=== PATIENT | male | born 1945 | race Caucasian/White ===

== ENCOUNTER 2017-05-28 11:18 | Day surgery (SDC) | payer OTHER ==
[2017-05-28] MEDS ORDERED: FAMOTIDINE 20 MG TAB PO ONE (11:26)
[2017-05-28] MEDS ORDERED: NS 1,000 ML IV ONE (11:26)
[2017-05-28] MEDS ORDERED: diphenhydrAMINE 25 MG CAP PO ONE (11:26)
[2017-05-28] MEDS ORDERED: DIAZEPAM 5 MG TAB PO ONE (11:26)
[2017-05-28] MEDS ORDERED: ASPIRIN EC 325 MG TAB PO ONE (11:26)
--- NOTE | 2017-05-28 11:43 | CPEKG ---
Heart Rate: 63 RR Interval: 952 P-R Interval: 204 QRSD Interval: 136 QT Interval: 412 QTC Interval: 422 P [place]: 40 QRS [place]: -35 T Wave [place]: 9 EKG Severity - ABNORMAL ECG - EKG Impression: SINUS RHYTHM EKG Impression: RIGHT BUNDLE BRANCH BLOCK EKG Impression: RBBB IS NEW IN COMPARISON TO PRIOR Electronically Signed By: Hans Pichardo 28-May-2017 13:51:58
[2017-05-28 11:58] LABS: PLATELET COUNT 178 10^3/uL (150-400)
[2017-05-28 12:08] LABS: INR 0.99 (0.83-1.16); PROTIME(PATIENT) 13.3 SEC (12.0-15.0)
--- NOTE | 2017-05-28 12:09 | PDHPUP ---
History & Physical Update H&P update statement: This history and physical update is based on an assessment of the patient which was completed after admission or registration (within 24 hours), but prior to the surgery/procedure. H&P update: H&P reviewed & patient examined, no change in patient's condition since H&P completed
--- NOTE | 2017-05-28 12:09 | PDPROPOC ---
Sedation Plan of Care Sedation Plan of Care: vital signs stable, mental status noted, patient educated of risks, benefits, alternatives, patient can tolerate sedation ASA Classification: ASA 2 Planned drugs: fentanyl, midazolam Mallampati Score: Class 1 Mallampati Reference Image: Patient passed 3-3-2 rule?: Yes
[2017-05-28] MEDS ORDERED: LIDOCAINE 1% 300 MG/30 ML SDV ONE (12:23)
[2017-05-28] MEDS ORDERED: MIDAZOLAM 2 MG/2 ML VIAL ONE (12:24)
[2017-05-28] MEDS ORDERED: IOPAMIDOL (ISOVUE-370) 150 ML BTL IV ONE (12:24)
[2017-05-28] MEDS ORDERED: fentaNYL 100 MCG/2 ML INJ ONE (12:24)
[2017-05-28] MEDS ORDERED: HEPARIN 10,000 UNIT/10 ML MDV (1,000 UNIT/ML) ONE (12:29)
[2017-05-28] MEDS ORDERED: VERAPAMIL 5 MG/2 ML VIAL ONE ×2 (12:29→13:02)
[2017-05-28] MEDS ORDERED: CLOPIDOGREL BISULFATE 75 MG TAB ONE (12:34)
--- NOTE | 2017-05-28 13:34 | PDDXCAT ---
Diagnostic Cath Note - . 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 Estimated blood loss: <50ml Closure method: TR Band Assessment: Widely patent site of prior stenting. Mild nonobstructive atherosclerotic cardiovascular disease. Normal LV systolic function. Patient Problems: Problems Problem Status Onset Coronary artery disease Acute Angina pectoris, crescendo Acute
== END 2017-05-28 17:21 | disposition home or self-care (01) ==
LOC: FCATH 11:18
PROVIDERS: ATTEND Internal Medicine Interventional Cardiology
PROC: 4A023N7 Measurement of Cardiac Sampling and Pressure, Left Heart, Percutaneous Approach (ICD-10-PCS; principal; 2017-05-28)
PROC: B2151ZZ Fluoroscopy of Left Heart using Low Osmolar Contrast (ICD-10-PCS; principal; 2017-05-28)
PROC: B2111ZZ Fluoroscopy of Multiple Coronary Arteries using Low Osmolar Contrast (ICD-10-PCS; principal; 2017-05-28)
DX: I25.110 Atherosclerotic heart disease of native coronary artery with unstable angina pectoris (principal); E78.5 Hyperlipidemia, unspecified; I10 Essential (primary) hypertension; Z95.5 Presence of coronary angioplasty implant and graft
CPT/HCPCS: 93005; 93458; C1769; J1644; J2250; J3010; Q9967

== ENCOUNTER 2018-02-09 10:49 | Observation (INO) | payer OTHER ==
--- NOTE | 2018-02-09 11:30 | EDPHY ---
H & P Stated Complaint: non traumatic L leg lower back pain on and for months worse last night- Time Seen by Provider: 02/09/18 10:57 HPI/ROS: CHIEF COMPLAINT: Multiple complaints, see HPI HISTORY OF PRESENT ILLNESS: 72-year-old male with medical history significant for cardiac stenting, on daily Plavix, arrives via private vehicle with his with multiple complaints. 1st and primary complaint is a varicose vein which ruptured approximately midnight last night on his right medial ankle. This has now stopped bleeding and there is a Band-Aid in place. 2nd complaint is chest pain which occurred approximately midnight as well lasted approximately 30 min described as a dull ache. He did not take any nitroglycerin at this time. He went back to bed. Currently asymptomatic for chest pain. Was not accompanied by diaphoresis, syncope or near syncope, dyspnea. 3rd complaint is several months of left lumbar pain with radicular pains left lower extremity. No weakness. No incontinence no retention. No saddle anesthesia. No foot drop. No trauma or fall. Has not sought medical evaluation for this. REVIEW OF SYSTEMS: 10 systems reviewed and negative with the exception of the elements mentioned in the history of present illness PAST MEDICAL & SURGICAL HISTORY: cardiac stenting. SOCIAL HISTORY: nonsmoker PHYSICAL EXAM (Prior to examination, patient consented to physical exam, hands were washed and my usual and customary physical exam procedures followed) 1) GENERAL: Well-developed, well-nourished, alert and oriented. Appears to be in no acute distress. 2) HEAD: Normocephalic, atraumatic 3) HEENT: Pupils equal, round, reactive to light bilaterally. Sclera anicteric. Nasopharynx, oropharynx, clear, no lesions. MoistDry mucous membranes. Ears bilaterally with normal tympanic membranes. 4) NECK: Full range of motion, no meningeal signs. 5) LUNGS: Clear auscultation bilaterally, no wheezes, no rhonchi, no retractions. 6) HEART: Regular rate and rhythm, no murmur, no heave, no gallop. 7) ABDOMEN: No guarding, no rebound, no focal tenderness, negative McBurney's, negative Pineda's, negative Rovsing's, negative peritoneal sign, 8) MUSCULOSKELETAL: Right lower extremity: Band-Aid in place right medial ankle. No active bleeding. The for bleeding site is visualized and appears well with no signs of infection. DP PT pulses present and brisk. Moving all extremities, no focal areas of tenderness, no obvious trauma. No peripheral edema or discoloration. 9) BACK: No CVA tenderness, no midline vertebral tenderness, no fluctuance, no step-off, no obvious trauma, no visual or palpable abnormality. Positive straight leg lift test on the left. Patella and Achilles reflexes are intact equal bilaterally strength 5/5. No footdrop. 10) SKIN: No rash, no petechiae. 11) Psychiatric: Patient is oriented X 3, there is no agitation. DIFFERENTIAL DIAGNOSIS: In no particular order, including but not limited to myocardial ischemia, pulmonary embolus, chest wall pain, pleural inflammation and pulmonary infectious causes. - Personal History Tetanus Vaccine Date: 2005 - Medical/Surgical History Hx Asthma: No Hx Chronic Respiratory Disease: No Hx Diabetes: No Hx Cardiac Disease: Yes Hx Renal Disease: No Hx Cirrhosis: No Hx Alcoholism: No Hx HIV/AIDS: No Hx Splenectomy or Spleen Trauma: No Other PMH: htn, hyperlipidemia, cardiac stents, dementia - Social History Smoking Status: Never smoked Constitutional: Initial Vital Signs Temperature (C) 36.7 C 02/09/18 10:53 Heart Rate 60 02/09/18 10:53 Respiratory Rate 16 02/09/18 10:53 Blood Pressure 158/84 H 02/09/18 10:53 O2 Sat (%) 95 02/09/18 10:53 O2 Delivery Mode Room Air Allergies/Adverse Reactions: No Known Allergies Allergy (Unverified 02/02/10 16:58) Home Medications: Medication Instructions Recorded Atorvastatin Calcium 80 mg PO DAILY 02/09/18 Clopidogrel Bisulfate [Plavix (*)] 75 mg PO DAILY 02/09/18 Losartan Potassium [Cozaar 25 mg 25 mg PO DAILY 02/09/18 (*)] Metoprolol Succinate Xr [Toprol Xl 25 mg PO DAILY 02/09/18 25 mg (*)] Multivitamins [Multivitamin (*)] 1 each PO DAILY 02/09/18 Medical Decision Making - Diagnostics Imaging Results: Imaging Impressions Chest X-Ray 02/09/18 11:13 Impression: No acute abnormality. ED Course/Re-evaluation: 11:15 a.m.: I saw this patient independently based on established practice protocols. Care of patient under supervision of secondary supervising physician Dr Armin Sung with whom I discussed case. I reviewed the patient's old medical records. He presents to the ER with multiple complaints. His primary complaint and concern was the area of bleeding from a varicose vein. This is now hemostatic and has been dressed to protect the area further bumping. His other complaint is a several months of left lower extremity pain with no neurologic deficits, no footdrop no weakness. His other complaint is acute chest pain which I think is more concerning and mandates evaluation from the emergency department given his cardiac history. Currently asymptomatic. Will obtain laboratory studies for evaluation of chest pain. Regarding his back pain and left lower extremity radiculopathy, he is neurologically intact. I do not think that emergent MRI from the emergency department is indicated however this may be indicated on an outpatient basis or inpatient basis the patient is admitted. 12:10 p.m.: Patient's has a high HEART score based on age, risk factors and history. He has negative troponin currently. Recommended admission to the hospital for evaluation of his chest pain. Consultation with hospitalist admit to Dr. Tejada. Regarding his low back pain, I do not think that emergent MRI indicated however this may be obtained at the discretion of the hospitalist service. He has no neurologic deficits or weakness at this time. - Data Points Laboratory Results: Laboratory Results 02/09/18 11:18 02/09/18 11:18 02/09/18 02/09/18 02/09/18 11:21 11:18 11:18 WBC 5.91 10^3/uL 10^3/uL (3.80-9.50) RBC 4.82 10^6/uL 10^6/uL (4.40-6.38) Hgb 15.2 g/dL g/dL (13.7-17.5) Hct 46.5 % % (40.0-51.0) MCV 96.5 fL fL (81.5-99.8) MCH 31.5 pg pg (27.9-34.1) MCHC 32.7 g/dL g/dL (32.4-36.7) RDW 12.7 % % (11.5-15.2) Plt Count 173 10^3/uL 10^3/uL (150-400) MPV 8.7 fL fL (8.7-11.7) Neut % (Auto) 69.6 % % (39.3-74.2) Lymph % (Auto) 18.8 % % (15.0-45.0) [place] % (Auto) 9.5 % % (4.5-13.0) Eos % (Auto) 1.5 % % (0.6-7.6) Baso % (Auto) 0.3 % % (0.3-1.7) Nucleat RBC Rel Count 0.0 % % (0.0-0.2) Absolute Neuts (auto) 4.11 10^3/uL 10^3/uL (1.70-6.50) Absolute Lymphs (auto) 1.11 10^3/uL 10^3/uL (1.00-3.00) Absolute Monos (auto) 0.56 10^3/uL 10^3/uL (0.30-0.80) Absolute Eos (auto) 0.09 10^3/uL 10^3/uL (0.03-0.40) Absolute Basos (auto) 0.02 10^3/uL 10^3/uL (0.02-0.10) Absolute Nucleated RBC 0.00 10^3/uL 10^3/uL (0-0.01) Immature Gran % 0.3 % % (0.0-1.1) Immature Gran # 0.02 10^3/uL 10^3/uL (0.00-0.10) Sodium 139 mEq/L mEq/L (135-145) Potassium 4.4 mEq/L mEq/L (3.3-5.0) Chloride 105 mEq/L mEq/L (97-110) Carbon Dioxide 27 mEq/l mEq/l (22-31) Anion Gap 7 mEq/L mEq/L (6-14) BUN 22 mg/dL mg/dL (7-23) Creatinine 0.8 mg/dL mg/dL (0.7-1.3) Estimated GFR > 60 Glucose 93 mg/dL mg/dL (70-100) Calcium 9.1 mg/dL mg/dL (8.5-10.4) POC Troponin I 0.00 ng/mL ng/mL (0.00-0.08) Medications Given: Discontinued Medications Fentanyl (Sublimaze) 50 mcg IVP EDNOW ONE Stop: 02/09/18 12:56 Last Admin: 02/09/18 13:01 Dose: 50 mcg Point of Care Test Results: Chemistry 02/09/18 11:21 POC Troponin I 0.00 ng/mL ng/mL (0.00-0.08) Departure - Departure Disposition: [facility] Inpatient Acute Clinical Impression: Radicular pain of left lower extremity, Bleeding from varicose vein Chest pain Qualifiers: Chest pain type: unspecified Qualified Code(s): R07.9 - Chest pain, unspecified Condition: Fair
[2018-02-09 11:38] LABS: PLATELET COUNT 173 10^3/uL (150-400)
[2018-02-09] MEDS ORDERED: fentaNYL 100 MCG/2 ML INJ IVP ONE (12:55)
--- NOTE | 2018-02-09 13:59 | CPEKG ---
Test Reason : OPEN Blood Pressure : / mmHG Vent. Rate : 060 BPM Atrial Rate : 060 BPM P-R Int : 211 ms QRS Dur : 144 ms QT Int : 402 ms P-R-T Axes : -21 -47 001 degrees QTc Int : 402 ms Sinus rhythm RBBB and LAFB Confirmed by Armin Sung ([id number]) on 02/09/2018 1:59:07 PM Referred By: Confirmed By:Armin Sung
[2018-02-09] MEDS ORDERED: ONDANSETRON 4 MG/2 ML VIAL IVP PRN (15:06)
[2018-02-09] MEDS ORDERED: NITROGLYCERIN 0.4 MG BTL SL PRN (15:06)
[2018-02-09] MEDS: ACETAMINOPHEN 325 MG TAB PO PRN (15:37)
--- NOTE | 2018-02-09 15:43 | PDGENHP ---
History and Physical - Chief Complaint chest pain - History of Present Illness 72yo M with history of CAD s/p RCA stenting, HTN, HLD, TBI presents after having episode of chest discomfort last night. He actually woke up around midnight as a varicose vein in his right leg had spontaneously opened and started bleeding. His provided pressure and this eventually stopped bleeding. During this episode, he noticed left sided chest pain. Did not radiate. Not exertional, positional, or pleuritic. No associated diaphoresis or nausea. He has some bilateral leg edema which is new for him but denies orthopnea. His checked his pulse at the time and thought that it was skipping beats. This chest pain resolved spontaneously after 30 minutes or so. The patient has noticed similar sensations while briskly walking over the last few months. This hasn't changed in intensity or frequency over this time period. He sees Dr Leyva and had a coronary angiogram for chest pain 2017. This showed widely patent RCA stents with mild non-obstructive disease and normal LV function. Of note, patient is somewhat of a poor historian. His provided a significant portion of the history. In the ED, had negative troponin and ECG without acute ischemia. Given his elevated HEART score, he is being admitted for further evaluation of his chest pain. Also of note, patient reports somewhat new left hip pain. Lateral side of hip. No back pain. No recent falls. Denies weakness/numbness in left leg. No bowel/ bladder incontinence. History Information - Allergies/Home Medication List Allergies/Adverse Reactions: No Known Allergies Allergy (Unverified 02/02/10 16:58) Home Medications: Atorvastatin Calcium 80 mg PO DAILY 02/09/18 [Last Taken 02/08/18] Clopidogrel Bisulfate [Plavix (*)] 75 mg PO DAILY 02/09/18 [Last Taken 02/08/18] Losartan Potassium [Cozaar 25 mg (*)] 25 mg PO DAILY 02/09/18 [Last Taken ] Metoprolol Succinate Xr [Toprol Xl 25 mg (*)] 25 mg PO DAILY 02/09/18 [Last Taken 02/08/18] Multivitamins [Multivitamin (*)] 1 each PO DAILY 02/09/18 [Last Taken Unknown] I have personally reviewed and updated: family history, medical history, social history, surgical history - Past Medical History Additional medical history: CAD s/p RCA stents x2, HTN, HLD, TBI (after fall about 9 years ago) - Surgical History Additional surgical history: coronary angiography x2, cervical spinal fusion - Family History Positive for: non-pertinent - Social History Smoking Status: Never smoked Alcohol Use: None Drug Use: None Additional social history: Lives with Review of Systems Review of Systems: ROS: 10pt was reviewed & negative except for what was stated in HPI & below Physical Exam Physical Exam: Temp Pulse Resp BP Pulse Ox 36.1 C 63 15 166/89 H 92 02/09/18 14:37 02/09/18 14:37 02/09/18 14:37 02/09/18 14:37 02/09/18 14:37 Constitutional: no apparent distress, appears nourished, not in pain Eyes: PERRL, anicteric sclera, EOMI Ears, Nose, Mouth, Throat: moist mucous membranes, hearing normal, ears appear normal, no oral mucosal ulcers Cardiovascular: regular rate and rhythym, no murmur, rub, or gallop, edema (1+ in BLE), No JVD Respiratory: no respiratory distress, no rales or rhonchi, clear to auscultation Gastrointestinal: normoactive bowel sounds, soft, non-tender abdomen, no palpable masses Genitourinary: no bladder fullness, no bladder tenderness Skin: warm, normal color, no rashes or abrasions, no fluctuance, no induration, No mottled Musculoskeletal: full muscle strength, no muscle tenderness, other (left hip tenderness over greater trochanter) Neurologic: AAOx3, sensation intact bilaterally, No weakness, No numbness Psychiatric: other (slow to respond at times but grossly oriented to situation) Lab Data & Imaging Review 02/09/18 11:18 02/09/18 11:18 WBC 5.91 10^3/uL (3.80-9.50) 02/09/18 11:18 RBC 4.82 10^6/uL (4.40-6.38) 02/09/18 11:18 Hgb 15.2 g/dL (13.7-17.5) 02/09/18 11:18 Hct 46.5 % (40.0-51.0) 02/09/18 11:18 MCV 96.5 fL (81.5-99.8) 02/09/18 11:18 MCH 31.5 pg (27.9-34.1) 02/09/18 11:18 MCHC 32.7 g/dL (32.4-36.7) 02/09/18 11:18 RDW 12.7 % (11.5-15.2) 02/09/18 11:18 Plt Count 173 10^3/uL (150-400) 02/09/18 11:18 MPV 8.7 fL (8.7-11.7) 02/09/18 11:18 Neut % (Auto) 69.6 % (39.3-74.2) 02/09/18 11:18 Lymph % (Auto) 18.8 % (15.0-45.0) 02/09/18 11:18 [place] % (Auto) 9.5 % (4.5-13.0) 02/09/18 11:18 Eos % (Auto) 1.5 % (0.6-7.6) 02/09/18 11:18 Baso % (Auto) 0.3 % (0.3-1.7) 02/09/18 11:18 Nucleat RBC Rel Count 0.0 % (0.0-0.2) 02/09/18 11:18 Absolute Neuts (auto) 4.11 10^3/uL (1.70-6.50) 02/09/18 11:18 Absolute Lymphs (auto) 1.11 10^3/uL (1.00-3.00) 02/09/18 11:18 Absolute Monos (auto) 0.56 10^3/uL (0.30-0.80) 02/09/18 11:18 Absolute Eos (auto) 0.09 10^3/uL (0.03-0.40) 02/09/18 11:18 Absolute Basos (auto) 0.02 10^3/uL (0.02-0.10) 02/09/18 11:18 Absolute Nucleated RBC 0.00 10^3/uL (0-0.01) 02/09/18 11:18 Immature Gran % 0.3 % (0.0-1.1) 02/09/18 11:18 Immature Gran # 0.02 10^3/uL (0.00-0.10) 02/09/18 11:18 Sodium 139 mEq/L (135-145) 02/09/18 11:18 Potassium 4.4 mEq/L (3.3-5.0) 02/09/18 11:18 Chloride 105 mEq/L (97-110) 02/09/18 11:18 Carbon Dioxide 27 mEq/l (22-31) 02/09/18 11:18 Anion Gap 7 mEq/L (6-14) 02/09/18 11:18 BUN 22 mg/dL (7-23) 02/09/18 11:18 Creatinine 0.8 mg/dL (0.7-1.3) 02/09/18 11:18 Estimated GFR > 60 02/09/18 11:18 Glucose 93 mg/dL (70-100) 02/09/18 11:18 Calcium 9.1 mg/dL (8.5-10.4) 02/09/18 11:18 POC Troponin I 0.00 ng/mL (0.00-0.08) 02/09/18 11:21 Visualized and Interpreted Chest x-ray results: Yes Visualized and Interpreted imaging results: Yes Interpretation: CXR: no infiltrate, effusion. normal heart size. no significant vascular congestion (per my read). LLE duplex US: negative for DVT Visualized and Interpreted EKG results: Yes EKG additional interpertation: ECG: sinus rhtyhm, 1st degree AV block, RBBB, biphasic T wave in V3 otherwise no ST-T wave changes suggestive of ischemia ( similar to 05/30/2017 ecg) Assessment & Plan Assessment: 72yo M with history of CAD s/p RCA stenting, HTN, HLD presents after having episode of chest discomfort last night being admitted for further evaluation. Plan: #Chest pain: Given history, requires further investigation. Initial trop negative and ecg without acute ischemic changes. Story not convincing for ACS at present and will hold on systemic anticoagulation. - Trend trop/ecg - Telemetry - If above negative, plan for nuclear stress with MPI in morning - Obtain TTE with new leg swelling (and none in system since 2009 that I can find) #CAD: Coronary angiography 05/30/2017 with patent RCA stents and otherwise mild non-obstructive disease. Sees Dr Leyva. - Continue plavix, statin, beta [place] - Consider up-titrating anti-anginal therapy if ischemic work up is negative #Left hip pain: Consistent with greater trochanteric bursitis - Heat, lidocaine patch. Avoiding nsaids while on plavix #Bleeding varicose vein: Now hemostatic. #HTN: Continue home meds. #HLD: On a statin. #TBI: After fall about 9 years ago. He is slow to respond and sometimes doesn't respond entirely appropriately but per this is baseline. Diet: cardiac VTE ppx: SCDs Code: full Dispo: Admit under observation for cardiac evaluation as above.
[2018-02-09] MEDS: LIDOCAINE 4%/MENTHOL 1% PATCH TD SCH (17:24)
[2018-02-09] MEDS: METOPROLOL SUCCINATE XR 25 MG TAB PO SCH (18:31)
[2018-02-09] MEDS: ATORVASTATIN CALCIUM 40 MG TAB PO SCH (18:31)
[2018-02-09] MEDS: CLOPIDOGREL BISULFATE 75 MG TAB PO SCH (18:31)
[2018-02-09] MEDS ORDERED: PATCH REMOVAL 1 EA PATCH TD SCH (21:00)
[2018-02-10] MEDS: ACETAMINOPHEN 325 MG TAB PO PRN (03:34)
[2018-02-10] MEDS ORDERED: METOPROLOL SUCCINATE XR 25 MG TAB PO SCH (09:00)
[2018-02-10] MEDS ORDERED: LOSARTAN POTASSIUM 25 MG TAB PO SCH (09:00)
[2018-02-10] MEDS ORDERED: CLOPIDOGREL BISULFATE 75 MG TAB PO SCH (09:00)
[2018-02-10] MEDS ORDERED: ATORVASTATIN CALCIUM 40 MG TAB PO SCH (09:00)
[2018-02-10] MEDS ORDERED: REGADENOSON 0.4 MG/5 ML SYR IVP ONE (09:13)
[2018-02-10] MEDS: METOPROLOL SUCCINATE XR 25 MG TAB PO SCH (09:21)
[2018-02-10] MEDS: CLOPIDOGREL BISULFATE 75 MG TAB PO SCH (09:22)
[2018-02-10] MEDS: ATORVASTATIN CALCIUM 40 MG TAB PO SCH (09:22)
[2018-02-10] MEDS: LIDOCAINE 4%/MENTHOL 1% PATCH TD SCH (09:23)
--- NOTE | 2018-02-10 11:06 | CPR ---
DATE OF PROCEDURE: 02/10/2018 INDICATIONS: The patient is 72-year-old, who has known coronary disease. He is admitted with chest discomfort. PROCEDURE: Lexiscan myocardial perfusion imaging. TECHNIQUE: Following informed consent, in the fasting state, and in the patient's room, the patient was administered Lexiscan per protocol. He was monitored for 4 minutes after the administration of L exiscan. His initial blood pressure was 146/84 with saturations of 91%. During the monitored time f rame, he remained hemodynamically stable, and at termination of the studies, his blood pressure was 1 43/70 with saturations of 93%. He did complain of mild chest discomfort. His baseline electrocardio gram demonstrated sinus rhythm with a right bundle branch block and a left anterior fascicular block. He had no arrhythmias and no change in his ECG during the monitored time frame. A full and separat hao detailed report regarding the myocardial perfusion imaging will be performed by Radiology. /[id number]/MODL
[2018-02-10 11:51] VITALS: BP 137/85
--- NOTE | 2018-02-10 14:38 | ASMTCMCOM ---
CM Note CM Note Notes: Patient is a 72 year old male admitted under observation via [facility] ED after episode of chest discomfort and ruptured varicose vein in R leg. Patient has history of CAD s/p RCA stenting, HTN, HLD, and TBI. RN shares Nicolle is a nurse. Patient discussed during rounds, stress test was completed today, will likely discharge today to home independently with family support if stress test results are negative. CM met with patient and , WANDA and ZULEMA delivered and signed for receipt. CM to follow. Current d/c plan: likely home independent with family. Date Signed: 02/10/2018 02:37 PM Electronically Signed By:Gail Fields
--- NOTE | 2018-02-10 18:23 | GDS ---
DISCHARGE DIAGNOSES: 1. Chest pain. 2. Abnormal stress images on myocardial perfusion scan. 3. Coronary artery disease, status post previous right coronary artery stent. 4. Traumatic brain injury. HISTORY: Medhat is a 72-year-old male with a previous history of a right coronary artery stent. He did have a cardiac catheterization in May that was unremarkable. He now re-presents to the hosp ital with an episode of chest pain. Troponins and EKGs remained negative. Nuclear medicine stress t esting was ordered. Stress images were abnormal. It was recommended that he stay in the hospital to complete rest images tomorrow morning. He adamantly refused to stay in the hospital and was willing to sign himself out AMA. Given his negative EKGs and troponins, as well as the fact he has remained chest pain free since the initial episode, medically I thought it was safe [facility]. The fact that he recently had a cardiac catheterization in May that was unr emarkable is also reassuring. They will call [facility] first thing tomorrow morning to discuss h ow to proceed given incomplete stress testing during this hospitalization. DISCHARGE MEDICATIONS: Please see computerized record for full detailed list. There are no new medi cations given at time of hospital discharge. ADDITIONAL DISCHARGE INSTRUCTIONS: Call [facility] tomorrow morning to discuss how to proceed giv en incomplete stress testing as rest images are still needed. Patient was seen and examined by me on the day of discharge. /[id number]/MODL
== END 2018-02-10 16:43 | disposition home or self-care (01) ==
LOC: F2W 14:30
PROVIDERS: ADMIT Internal Medicine; ATTEND Internal Medicine
DX: R07.89 Other chest pain (principal); R94.39 Abnormal result of other cardiovascular function study; I25.10 Atherosclerotic heart disease of native coronary artery without angina pectoris; I83.892 Varicose veins of left lower extremity with other complications; M54.16 Radiculopathy, lumbar region; F03.90 Unspecified dementia, unspecified severity, without behavioral disturbance, psychotic disturbance, mood disturbance, and anxiety; I10 Essential (primary) hypertension; E78.5 Hyperlipidemia, unspecified; Z95.1 Presence of aortocoronary bypass graft; Z87.820 Personal history of traumatic brain injury; Z23 Encounter for immunization
CPT/HCPCS: 71046; 78451; 90686; 93005; 93017; 93971; 96374; 99285; A9500; G0008; G0378; J2785; J3010; 84484-PO

== ENCOUNTER → 2018-08-29 | Outpatient (CLI) | payer OTHER | LOC: FIMAGING 06:31 ==

== ENCOUNTER → 2018-09-04 | Outpatient (CLI) | payer OTHER | LOC: FIMAGING 06:26 ==

== ENCOUNTER → 2018-09-05 | Outpatient (CLI) | payer OTHER | LOC: FIMAGING 09:05 ==

== ENCOUNTER 2018-09-17 09:21 | Day surgery (SDC) | payer OTHER | END 2018-09-17 13:54 | disposition home or self-care (01) | LOC: FIMAGING 09:21 ==